=== PATIENT | male | born 1945 | race Caucasian/White ===

== ENCOUNTER 2020-06-05 14:31 | Emergency (ER) | payer OTHER ==
[~2020-06-05] VITALS: Ht 188 cm; Wt 119.7 kg
[2020-06-05] MEDS ORDERED: COZAAR50 MG (14:48)
[2020-06-05] MEDS ORDERED: TENORMIN50 M1 (14:49)
== END 2020-06-05 18:53 | disposition home or self-care (01) ==
LOC: ER 14:31
DX: M25.552 Pain in left hip (principal); M25.521 Pain in right elbow